=== PATIENT | female | born 1940 | race Caucasian/White ===

== ENCOUNTER 2020-07-07 15:32 | Emergency (ER) | payer MEDICARE, BC, SELFPAY ==
[2020-07-07 15:35] VITALS: BP 140/70; PULSE 84; RESP 14; TEMP 37.6; O2SAT 94; BMI 27.4
--- NOTE | 2020-07-07 16:00 | XRR_ITS ---
PROCEDURE INFORMATION: Exam: XR Chest Exam date and time: 07/07/2020 4:04 PM Age: 79 years old Clinical indication: Injury or trauma; Fall; Blunt trauma (contusions or hematomas); Injury date: X1 week; Additional info: Cough, fever, weakness TECHNIQUE: Imaging protocol: XR of the chest. Views: 1 view. COMPARISON: No relevant prior studies available. FINDINGS: Lungs: There is some focal infiltrate at the left lung base worrisome for pneumonia. Visualized portions of the right lung are clear. Pleural spaces: Unremarkable. No pleural effusion. No pneumothorax. Heart/Mediastinum: Heart is within normal limits of size. Bones/joints: Unremarkable. XR/XR chest 1V portable [id number] IMPRESSION: Left lower lobe infiltrate suspicious for pneumonia.
--- NOTE | 2020-07-07 16:02 | ECG_ITS ---
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
--- NOTE | 2020-07-07 16:03 | XRR_ITS ---
PROCEDURE INFORMATION: Exam: XR Lumbosacral Spine Exam date and time: 07/07/2020 4:04 PM Age: 79 years old Clinical indication: Injury or trauma; Fall; Blunt trauma (contusions or hematomas); Injury date: X1 wk TECHNIQUE: Imaging protocol: XR of the lumbosacral spine. Views: 2 or 3 views. COMPARISON: No relevant prior studies available. FINDINGS: Bones/joints: There is mild scoliosis concave to the right. Intervertebral disc spaces are preserved. No fracture is identified. Soft tissues: Unremarkable. Vasculature: There are atherosclerotic calcifications in the abdominal aorta without evidence of aneurysm. XR/XR lumbar spine 2-3V* [id number] IMPRESSION: No fracture is identified.
--- NOTE | 2020-07-07 16:04 | ED_ITS ---
HPI - Syncope General: Chief Complaint: Syncope Stated Complaint: WEAKNESS; NEAR SYNCOPE Time Seen by Provider: 07/07/20 15:43 History of Present Illness: HPI narrative: The patient is a 79-year-old female with past medical history hypertension, GERD, and hiatal hernia. She lives in [place] and is visiting the area. She says yesterday she began to develop a sore throat, congestion, cough, fever, fatigue and mild general weakness. Today the weakness feels slightly worse. She got up to use the restroom and had a near syncopal event where she fell to the floor. She did not lose consciousness but admits to feeling weak. She complained of low back pain after she fell. She admits to not drinking well this morning but did drink and eat well yesterday. Temperature 99.7 on arrival. She denies back pain in the ER at present. She had both of her Covid vaccinations earlier this year. About a week ago she was seen at a hospital in [place] for vomiting which she felt better the next day. yesterday evening when the sore throat began Context: standing up Injuries sustained associated with event: back Associated symptoms: Reports fever(s); Deny abdominal pain, chest pain or headache(s) Review of Systems General: Reports: 10 or more systems reviewed and unremarkable except in HPI and below Const: Reports: fever(s) and fatigue Eyes: Denies: change in vision, blurry vision or eye redness ENMT: Reports: throat pain and nasal congestion; Denies: swelling of lips/tongue or ear or mastoid pain Card: Denies: chest pain, palpitations, irregular heart rhythm, edema, dyspnea on exertion or orthopnea Resp: Reports: non-productive cough; Denies: dyspnea or productive cough GI: Denies: abdominal pain, diarrhea or GI cramping : Denies: flank pain, difficulty voiding, urinary frequency or urinary urgency Musc: Denies: neck pain, back pain, extremity pain, joint pain, joint redness, limited range of motion or muscle weakness Skin/Breast: Denies: rash, pruritus, erythema, skin pain or skin tenderness Neuro: Denies: headache(s), numbness in extremities, weakness in extremities, sensory changes, difficulty walking, dizziness, confusion or Slurred speech present Psych: Denies: anxiety or depression Endo: Denies: polyuria All/Imm: Denies: urticaria, throat swelling or tongue swelling Physical Exam Const: COMMON NORMALS: no acute distress, average body habitus, patient oriented x3, alert and well nourished GENERAL APPEARANCE: cooperative, comfortable, well kempt and well developed ORIENTATION/CONSCIOUSNESS: Yes awake, Yes oriented to person, Yes oriented to place and Yes oriented to time OTHER: Mild elevated temperature 99.7. HENMT: COMMON NORMALS: normocephalic, external ears normal and Normal external nose present HEAD & SCALP: normal to inspection and normocephalic NOSE: Normal external nose present EXTERNAL EAR: Yes external ears normal MOUTH: Normal oral and palatal mucosa present THROAT: posterior oropharynx normal Eye: COMMON NORMALS: Equal, round and reactive pupils present and EOMs intact bilaterally GENERAL EYE: appearance normal, both eyes and all related structures PUPIL: Yes Equal, round and reactive pupils present Neck/C-Spine: COMMON NORMALS: full ROM, no lymphadenopathy, no meningeal signs and no JVD GENERAL: Yes normal visual inspection Lymph: LYMPHATIC: no lymphadenopathy noted Chest: COMMONS NORMALS: normal inspection of the chest and normal palpation of entire chest wall Resp: COMMON NORMALS: normal respiratory effort, No retractions, No use of accessory muscles and percussion normal EFFORT & INSPECTION: Yes able to speak in complete sentences PERCUSSION: percussion normal Cardio: COMMON NORMALS: no JVD, regular rate, regular rhythm, S1 normal heart sound present, S2 normal heart sound present and Peripheral pulses 2+ throughout RATE: regular rate RHYTHM: regular rhythm HEART SOUNDS: S1 normal heart sound present and S2 normal heart sound present PERIPHERAL PULSES: Peripheral pulses 2+ throughout GI: COMMON NORMALS: Normal to inspection, nondistended, normoactive bowel sounds present, Soft to palpation, non-tender and no masses INSPECTION: Yes normal to inspection PALPATION: Yes Soft to palpation : COMMON NORMALS: Yes no CVA tenderness BLADDER/KIDNEY EXAM: Yes no CVA tenderness Back/Pelvis: COMMON NORMALS: no CVA tenderness, thoracic and lumbar spine normal to inspection, no thoracic nor lumbar tenderness and thoraco-lumbar ROM normal Extremity: COMMON NORMALS: normal to inspection, full ROM, capillary refill normal, no joint enlargement and no pedal edema GENERAL: Yes normal exam except as noted Neuro: COMMON NORMALS: patient oriented x3, CN's II-XII intact bilaterally, moves all extremities, no focal motor deficits, no sensory deficits noted and gait normal SENSORIUM/ORIENTATION: Yes alert, Yes oriented to person, Yes oriented to place and Yes oriented to time MENINGEAL SIGNS: Yes no meningeal signs Psych: COMMON NORMALS: mental status grossly normal, Normal thought process present, cooperative, normal affect and speech normal APPEARANCE: Yes well kempt ATTITUDE: Yes calm SPEECH: Yes normal speech THOUGHT PROCESS: Normal thought process present Skin: COMMON NORMALS: no rashes or lesions noted GENERAL SKIN EXAM: no rashes or lesions noted Course Vital Signs: Vital signs: Vital Signs Temperature 99.7 F H 07/07/20 15:35 Pulse Rate 73 07/07/20 18:02 Respiratory Rate 17 07/07/20 17:57 Blood Pressure 124/75 07/07/20 16:55 Pulse Oximetry 95 07/07/20 17:57 MDM - Syncope MDM Narrative: Medical decision making narrative: Patient came into the ER complaining of shortness of breath and productive cough as well as sore throat. X-ray does show pneumonia. CT negative for pulmonary embolism. She was given levofloxacin and albuterol in the ER with good improvement of her shortness of breath. She will be discharged with the same. Follow-up with primary care physician early next week and return to the ER with worsening symptoms. I also told her to get her blood rechecked as her white count was 20 Lab Data: Labs: Lab Results 07/07/20 07/07/20 07/07/20 Range/Units 16:24 16:24 16:24 WBC 20.0 H (4.0-10.0) 10^3/ uL RBC 4.06 L (4.1-5.3) 10^6/u L Hgb 13.2 (11.5-15.3) g/dL Hct 39.7 (37.0-47.0) % MCV 97.8 (81-99) fL MCH 32.5 (28.0-34.0) pg MCHC 33.2 (30.0-36.0) g/dL RDW 13.2 (12.1-15.1) % Plt Count 195 (130-400) 10^3/c mm MPV 11.3 H (7.4-10.4) fL Neut % (Auto) 86.8 % Lymph % (Auto) 5.9 % [place] % (Auto) 6.4 % Eos % (Auto) 0.0 % Baso % (Auto) 0.4 % Neut # (Auto) 17.35 H (1.8-7.7) 10^3/u L Lymph # (Auto) 1.2 (0.8-4.8) 10^3/u L [place] # (Auto) 1.3 H (0.2-0.9) 10^3/u L Eos # (Auto) 0.0 (0.0-0.8) 10^3/u L Baso # (Auto) 0.1 (0.0-0.1) 10^3/u L Nucleated RBC % (a uto) 0 % Nucleated RBCs # 0.0 /100WBC D-Dimer 1.49 H (0-0.59) ug/mIFE U Sodium 140 (136-145) mmol/L Potassium 3.5 (3.5-5.1) mmol/L Chloride 103 (98-107) mmol/L Carbon Dioxide 25 (22-29) mmol/L Anion Gap 15.5 (5-19) BUN 15 (8-23) mg/dL Creatinine 1.1 H (0.5-0.9) mg/dL GFR Calculation Not Reportable Glucose 110 (65-115) mg/dL Calculated Osmolal ity 291 (285-295) mOsm/k g Lactic Acid (0.5-2.2) mmol/L Calcium 8.7 (8.5-10.5) mg/dL Total Bilirubin 0.7 (0.15-1.2) mg/dL AST 33 H (0-32) U/L ALT 17 (0-33) U/L Alkaline Phosphata se 92 (35-105) IU/L Troponin T Baselin e (0-10) ng/L Troponin T 120 Min [place] (0-10) ng/L Delta Troponin T (0-10) ABS# NT-Pro-B Natriuret Pep 531 H (0-450) pg/mL Total Protein 6.2 L (6.6-8.7) g/dL Albumin 4.1 (3.5-5.2) g/dL Globulin 2.1 (1.3-4.6) g/dL Urine Color (Yellow) Urine Appearance (CLEAR) Urine pH (5-7) Ur Specific Gravit y (1.005-1.030) Urine Protein (Negative) Urine Glucose (UA) (Normal) Urine Ketones (Negative) Urine Blood (Negative) Urine Nitrate (Negative) Urine Bilirubin (Negative) Urine Urobilinogen (Negative) mg/dL Ur Leukocyte Nelly ase (Negative) Influenza Type A A g (Negative) Influenza Type B A g (Negative) Group A Strep Rapi d (Negative) 07/07/20 07/07/20 07/07/20 Range/Units 16:24 16:24 16:44 WBC (4.0-10.0) 10^3/ uL RBC (4.1-5.3) 10^6/u L Hgb (11.5-15.3) g/dL Hct (37.0-47.0) % MCV (81-99) fL MCH (28.0-34.0) pg MCHC (30.0-36.0) g/dL RDW (12.1-15.1) % Plt Count (130-400) 10^3/c mm MPV (7.4-10.4) fL Neut % (Auto) % Lymph % (Auto) % [place] % (Auto) % Eos % (Auto) % Baso % (Auto) % Neut # (Auto) (1.8-7.7) 10^3/u L Lymph # (Auto) (0.8-4.8) 10^3/u L [place] # (Auto) (0.2-0.9) 10^3/u L Eos # (Auto) (0.0-0.8) 10^3/u L Baso # (Auto) (0.0-0.1) 10^3/u L Nucleated RBC % (a uto) % Nucleated RBCs # /100WBC D-Dimer (0-0.59) ug/mIFE U Sodium (136-145) mmol/L Potassium (3.5-5.1) mmol/L Chloride (98-107) mmol/L Carbon Dioxide (22-29) mmol/L Anion Gap (5-19) BUN (8-23) mg/dL Creatinine (0.5-0.9) mg/dL GFR Calculation Glucose (65-115) mg/dL Calculated Osmolal ity (285-295) mOsm/k g Lactic Acid 1.0 (0.5-2.2) mmol/L Calcium (8.5-10.5) mg/dL Total Bilirubin (0.15-1.2) mg/dL AST (0-32) U/L ALT (0-33) U/L Alkaline Phosphata se (35-105) IU/L Troponin T Baselin e 16 H (0-10) ng/L Troponin T 120 Min [place]cock (0-10) ng/L Delta Troponin T (0-10) ABS# NT-Pro-B Natriuret Pep (0-450) pg/mL Total Protein (6.6-8.7) g/dL Albumin (3.5-5.2) g/dL Globulin (1.3-4.6) g/dL Urine Color Yellow (Yellow) Urine Appearance Clear (CLEAR) Urine pH 5 (5-7) Ur Specific Gravit y 1.010 (1.005-1.030) Urine Protein Neg (Negative) Urine Glucose (UA) Norm (Normal) Urine Ketones Negative (Negative) Urine Blood Neg (Negative) Urine Nitrate Negative (Negative) Urine Bilirubin Neg (Negative) Urine Urobilinogen Norm (Negative) mg/dL Ur Leukocyte Nelly ase Negative (Negative) Influenza Type A A g (Negative) Influenza Type B A g (Negative) Group A Strep Rapi d (Negative) 07/07/20 07/07/20 07/07/20 Range/Units 17:01 17:01 18:03 WBC (4.0-10.0) 10^3/ uL RBC (4.1-5.3) 10^6/u L Hgb (11.5-15.3) g/dL Hct (37.0-47.0) % MCV (81-99) fL MCH (28.0-34.0) pg MCHC (30.0-36.0) g/dL RDW (12.1-15.1) % Plt Count (130-400) 10^3/c mm MPV (7.4-10.4) fL Neut % (Auto) % Lymph % (Auto) % [place] % (Auto) % Eos % (Auto) % Baso % (Auto) % Neut # (Auto) (1.8-7.7) 10^3/u L Lymph # (Auto) (0.8-4.8) 10^3/u L [place] # (Auto) (0.2-0.9) 10^3/u L Eos # (Auto) (0.0-0.8) 10^3/u L Baso # (Auto) (0.0-0.1) 10^3/u L Nucleated RBC % (a uto) % Nucleated RBCs # /100WBC D-Dimer (0-0.59) ug/mIFE U Sodium (136-145) mmol/L Potassium (3.5-5.1) mmol/L Chloride (98-107) mmol/L Carbon Dioxide (22-29) mmol/L Anion Gap (5-19) BUN (8-23) mg/dL Creatinine (0.5-0.9) mg/dL GFR Calculation Glucose (65-115) mg/dL Calculated Osmolal ity (285-295) mOsm/k g Lactic Acid (0.5-2.2) mmol/L Calcium (8.5-10.5) mg/dL Total Bilirubin (0.15-1.2) mg/dL AST (0-32) U/L ALT (0-33) U/L Alkaline Phosphata se (35-105) IU/L Troponin T Baselin e (0-10) ng/L Troponin T 120 Min [place] 16.80 H (0-10) ng/L Delta Troponin T 0.80 (0-10) ABS# NT-Pro-B Natriuret Pep (0-450) pg/mL Total Protein (6.6-8.7) g/dL Albumin (3.5-5.2) g/dL Globulin (1.3-4.6) g/dL Urine Color (Yellow) Urine Appearance (CLEAR) Urine pH (5-7) Ur Specific Gravit y (1.005-1.030) Urine Protein (Negative) Urine Glucose (UA) (Normal) Urine Ketones (Negative) Urine Blood (Negative) Urine Nitrate (Negative) Urine Bilirubin (Negative) Urine Urobilinogen (Negative) mg/dL Ur Leukocyte Nelly ase (Negative) Influenza Type A A g Negative (Negative) Influenza Type B A g Negative (Negative) Group A Strep Rapi d Negative (Negative) Discharge Plan Discharge Patient Disposition: Home Clinical Impression: Pneumonia Condition: Stable Prescriptions: New levofloxacin 750 mg tablet 750 mg PO DAILY 14 Days RF: 0 albuterol sulfate 90 mcg/actuation HFA aerosol inhaler 2 inh inhalation Q6H PRN (Reason: shortness of breath or wheezing) 30 Days RF: 0 No Action carvedilol 25 mg tablet 25 mg PO TID RF: 0 clonidine HCl 0.1 mg tablet 0.1 mg PO DAILY RF: 0 hydralazine 25 mg tablet 25 mg PO DAILY RF: 0 levothyroxine 75 mcg tablet 75 mcg PO DAILY RF: 0 pantoprazole 40 mg tablet,delayed release (DR/EC) 40 mg PO DAILY RF: 0 hydrochlorothiazide 25 mg tablet 25 mg PO DAILY RF: 0 hydrocodone-chlorpheniramine 10-8 mg/5 mL Suspension,Extended Rel 12 Hr 5 ml PO Q12H PRN (Reason: UNKNOWN) RF: 0 nortriptyline 50 mg capsule 100 mg PO BEDTIME RF: 0 amoxicillin-pot clavulanate 875-125 mg tablet 1 tab PO BID RF: 0 Livalo 1 mg tablet 1 mg PO DAILY RF: 0 melatonin 10 mg Tablet 10 mg PO DAILY RF: 0 Leg Cramp Relief 2 tab PO BEDTIME RF: 0 Vitamin D3 1 tab PO DAILY RF: 0 Discharge Orders: Discharge ED (Routine); Ordered 07/07/20 Ordered By: Phu Encinas Discharge Diet: Advance as tolerated Discharge Activity: Resume usual activity Patient Instructions: Bacterial Pneumonia (ED), Opioid Safety Activity Restrictions/Additional Instructions: You have pneumonia as seen on CAT scan. Please take Tylenol and ibuprofen for your fevers and take the levofloxacin I have prescribed you to treat the pneumonia. Also you may use the albuterol to help with shortness of breath. Return to the ER at anytime with worsening symptoms otherwise follow-up with your primary care physician in a couple days. 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
[2020-07-07] MEDS: acetaminophen 325 mg Tablet 1000 MG PO (16:40)
[2020-07-07] MEDS: sodium chloride 0.9% 1,000 ML 999 ML IV (16:40)
[2020-07-07] MEDS: levofloxacin-dextrose 5 % 750 MG/150 ML PREMIX 100 MG IV (16:41)
[2020-07-07 16:42] LABS: Basophils # 0.1 10^3/uL (0.0-0.1); Basophils % 0.4 %; Hematocrit 39.7 % (37.0-47.0); Hemoglobin 13.2 g/dL (11.5-15.3); Lymphocytes # 1.2 10^3/uL (0.8-4.8); Lymphocytes % 5.9 %; Mean Corpuscular HGB Conc 33.2 g/dL (30.0-36.0); Mean Corpuscular Hemoglobin 32.5 pg (28.0-34.0); Mean Corpuscular Volume 97.8 fL (81-99); Mean Platelet Volume 11.3 fL (7.4-10.4); Monocytes # 1.3 10^3/uL (0.2-0.9); Monocytes % 6.4 %; Neutrophils # 17.35 10^3/uL (1.8-7.7); Neutrophils % 86.8 %; Nucleated Red Blood Cells % 0 %; Platelet Count 195 10^3/cmm (130-400); Red Blood Count 4.06 10^6/uL (4.1-5.3); Red Cell Distribution Width 13.2 % (12.1-15.1)
[2020-07-07 16:49] LABS: D Dimer 1.49 ug/mIFEU (0-0.59)
--- NOTE | 2020-07-07 16:53 | CTR_ITS ---
PROCEDURE INFORMATION: Exam: CTA Chest With Contrast Exam date and time: 07/07/2020 5:55 PM Age: 79 years old Clinical indication: Abnormal findings; Abnormal diagnostic tests; Elevated d-dimer; Patient HX: C/O HTN, SOB, cough and elev d-dimer; Additional info: Dyspnea TECHNIQUE: Imaging protocol: Computed tomographic angiography of the chest with contrast. 3D rendering (Not supervised by radiologist): MIP and/or 3D reconstructed images were created by the technologist. Radiation optimization: All CT scans at this facility use at least one of these dose optimization techniques: automated exposure control; mA and/or kV adjustment per patient size (includes targeted exams where dose is matched to clinical indication); or iterative reconstruction. Contrast material: VISI 320; Contrast volume: 69 ml; Contrast route: INTRAVENOUS (IV); COMPARISON: CR XR chest 1V portable [id number] 07/07/2020 4:27 PM RADIATION DOSE METRICS: Total DLP (mGy-cm): 496.75 FINDINGS: Pulmonary arteries: Normal. No pulmonary emboli. Aorta: Unremarkable. No aortic aneurysm. No aortic dissection. Lungs: There is an 11 mm sized pulmonary nodule in the left lower lobe abutting the posterior pleural surface. For both low risk and high risk patients, consider CT Chest at 3 months, PET/CT, or biopsy. (Reference: [place]) There is focal area of atelectasis or consolidation in the periphery of the lingula abutting the lateral pleural surface. This accounts for the infiltrate on the chest radiograph and may represent small area of pneumonia. There is some platelike atelectasis in the middle lobe. There is mild dependent atelectasis in both lungs. There is mild bronchial wall thickening in right upper and lower lobes in small scattered peribronchial infiltrates in the right upper lower lobe consistent with bronchitis and possible early bronchopneumonia. There is also focal area of consolidation in the medial right lower lobe consistent with small area of pneumonia. Pleural spaces: Unremarkable. No pneumothorax. No pleural effusion. Heart: Unremarkable. No cardiomegaly. No pericardial effusion. Lymph nodes: There are calcified right hilar and mediastinal lymph nodes in keeping with old granulomatous disease. Liver: There is a 5 cm sized lobulated fluid density mass in the inferior tip of the right lobe of the liver, probably large septated cyst which is not fully evaluated on this examination. Consider non urgent ultrasound to confirm cystic nature of this mass. Gallbladder and bile ducts: There has been a cholecystectomy. Kidneys and ureters: There is a mass arising from the lateral aspect of the mid left kidney, likely simply cyst incompletely evaluated on this examination. Bones/joints: Unremarkable. No acute fracture. Soft tissues: Unremarkable. CT/CT angio chest PE protcl [id number] IMPRESSION: 1. Bronchitis and early bronchopneumonia in the right upper and lower lobes. 2. Small areas of consolidation described in the lingula and right lower lobe which may represent pneumonia 3. Bilateral areas of minor atelectasis. 4. No evidence of pulmonary embolism 5. Solitary pulmonary nodule in the left lower lobe as described. Follow-up according to Fleischner society guidelines is recommended. 6. Probable cysts in the liver and left kidney not fully evaluated on this study. COMMENTS: Consistent with the [employer]'s Incidental Findings Committee white paper (J Am Anderson Radiol 2018): Any incidental renal lesion less than 1 cm or classified as too small to characterize, or any incidental cystic renal lesion characterized as simple-appearing, is likely benign. No follow-up imaging is recommended for these lesions per consensus recommendations based on imaging criteria. REFERENCES: Zaire H, et al. Guidelines for Management of Incidental Pulmonary Nodules Detected on CT Images: From the Fleischner Society 2017. Radiology. 2017;284(1):228-243. Radiation Dose CTDIVOL = (mGy): DLP = 496.75 (mGy-cm)
[2020-07-07 16:55] VITALS: BP 124/75; PULSE 78; RESP 18; O2SAT 98
[2020-07-07 16:56] LABS: Add Urine Microscopic? NO; Charge for UA Resulting for Rev
[2020-07-07 17:00] LABS: Troponin(5th) Baseline 16 ng/L (0-10)
[2020-07-07 17:06] LABS: Bilirubin Urine Neg (Negative); Blood Urine Neg (Negative); Glucose Urine UA Norm (Normal); Ketones Urine Negative (Negative); Leukocyte Esterase Urine Negative (Negative); Nitrate Urine Negative (Negative); Protein Urine Neg (Negative); Urine Appearance Clear (CLEAR); Urine Color Yellow (Yellow); Urobilinogen Urine Norm (Negative); pH Urine 5 (5-7)
[2020-07-07 17:17] LABS: Alanine Aminotransferase 17 U/L (0-33); Albumin Level 4.1 g/dL (3.5-5.2); Alkaline Phosphatase 92 IU/L (35-105); Aspartate Amino Transferase 33 U/L (0-32); Blood Urea Nitrogen 15 mg/dL (8-23); Calcium 8.7 mg/dL (8.5-10.5); Carbon Dioxide 25 mmol/L (22-29); Chloride 103 mmol/L (98-107); Creatinine Clr Calc Pharmacy 39.6333; Globulin 2.1 g/dL (1.3-4.6); Glucose 110 mg/dL (65-115); NT Pro B Type Natriuretic Pept 531 pg/mL (0-450); Osmolality Calculated 291 mOsm/kg (285-295); Sodium 140 mmol/L (136-145); Total Bilirubin 0.7 mg/dL (0.15-1.2); Total Protein 6.2 g/dL (6.6-8.7)
[2020-07-07 17:22] LABS: Anion Gap 15.5 (5-19); Potassium 3.5 mmol/L (3.5-5.1)
[2020-07-07 17:22] LABS: Rapid Strep A Test Negative (Negative)
[2020-07-07 17:31] LABS: Influenza A by IFA Negative (Negative); Influenza B by IFA Negative (Negative)
[2020-07-07] MEDS: ipratropium-albuterol 3 mL Neb INHALATION (17:56)
[2020-07-07 17:57] VITALS: PULSE 76; RESP 17; O2SAT 95
[2020-07-07 18:02] VITALS: PULSE 73
[2020-07-07] MEDS: iodixanol 320 mg/mL 100mL Btl IV (18:17)
[2020-07-07 19:47] VITALS: BP 120/64; PULSE 70; RESP 16; O2SAT 97
--- NOTE | 2020-07-07 22:02 | ECG_ITS ---
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
--- NOTE | 2020-07-10 12:22 | DCPLANNER ---
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 aerospace project manager called phone number [phone], unable to speak with anyone at this time, and unable to leave a voicemail. Recording came on that stated phone number is not in service.
== END 2020-07-07 19:49 | disposition home or self-care (01) ==
PROVIDERS: Emergency Provider Family Medicine
DX: J18.9 Pneumonia, unspecified organism (principal)
CPT/HCPCS: 71045; 71275; 72100; 80053; 81003; 83605; 83880; 84484; 85025; 85378; 87040; 87081; 87804; 87880; 93005; 94640; 96365; 96375; 99284; J1956; J7030; Q9967